=== PATIENT | male | born 1945 | race Hispanic/Latino ===

== ENCOUNTER 2017-04-10 14:40 | Emergency (ER) | payer MEDICARE ==
--- NOTE | 2017-04-10 15:30 | RAD ---
1234 LEFT HAND THREE VIEWS: History: Smashed hand with hammer last week, left hand pain and swelling. FINDINGS/IMPRESSION: No acute fracture or dislocation is seen. POS: [facility]
== END 2017-04-10 15:20 | disposition home or self-care (01) ==
LOC: NAV ERS 14:40
DX: S60.222A Contusion of left hand, initial encounter (principal); I25.2 Old myocardial infarction; E78.5 Hyperlipidemia, unspecified; I10 Essential (primary) hypertension; F17.220 Nicotine dependence, chewing tobacco, uncomplicated; Z79.82 Long term (current) use of aspirin; Z79.899 Other long term (current) drug therapy; W20.8XXA Other cause of strike by thrown, projected or falling object, initial encounter

== ENCOUNTER 2017-09-26 15:46 | Emergency (ER) | payer MEDICARE ==
[2017-09-26] MEDS ORDERED: Diazepam 5 MG TAB ONE (16:19)
[2017-09-26] MEDS ORDERED: Acetaminophen/Codeine 30-300mg Tablet ONE (16:20)
== END 2017-09-26 16:51 | disposition home or self-care (01) ==
LOC: NAV ERS 15:46
DX: M62.830 Muscle spasm of back (principal); I10 Essential (primary) hypertension; I25.10 Atherosclerotic heart disease of native coronary artery without angina pectoris; I25.2 Old myocardial infarction; E78.5 Hyperlipidemia, unspecified; F17.220 Nicotine dependence, chewing tobacco, uncomplicated; Z79.82 Long term (current) use of aspirin; Z79.899 Other long term (current) drug therapy
CPT/HCPCS: 99283

== ENCOUNTER 2020-04-25 15:35 | Emergency (ER) | payer MEDICARE ==
[2020-04-25] MEDS ORDERED: Penicillin V Potassium 250 MG TAB ONE (16:01)
== END 2020-04-25 16:15 | disposition home or self-care (01) ==
LOC: NAV ERS 15:35
DX: K04.7 Periapical abscess without sinus (principal); K02.9 Dental caries, unspecified; E78.5 Hyperlipidemia, unspecified; I10 Essential (primary) hypertension; F17.220 Nicotine dependence, chewing tobacco, uncomplicated; Z79.899 Other long term (current) drug therapy; Z79.82 Long term (current) use of aspirin
CPT/HCPCS: 99283